=== PATIENT | male | born 1970 | race Caucasian/White ===

== ENCOUNTER 2017-02-20 16:46 | Emergency (ER) | payer OTHER ==
[~2017-02-20 16:46] MED LIST: HYDR-2758 PO; IBUP-1227 PO; SULF1TAB24 PO
--- NOTE | 2017-02-20 17:14 | RAD ---
Three-view left knee radiographs 02/20/2017 Clinical history: Fall with injury to the left knee while ice skating. AP, lateral and oblique digital radiographs of the left knee were obtained. An acute comminuted fracture of the left patella is seen. The fracture fragments are slightly distracted superiorly and inferiorly. No additional fracture is seen. Mild degenerative changes are seen involving all 3 compartments of the left knee. There is a moderate-sized suprapatellar joint effusion. Impression: Acute comminuted fracture of the left patella.
--- NOTE | 2017-02-20 18:04 | PHYS DOC ---
Past History Past Medical History: No Pertinent History, Other Past Surgical History: Other Smoking: Cigarettes Alcohol Use: Occasionally Drug Use: None Adult General Chief Complaint Chief Complaint: KNEE INJURY [facility] HPI 46-year-old male patient state he lost his balance while playing ice skating and landed on his left knee with severe pain in knee and states he thinks he has knee cap fracture. Patient denies other injuries and loss of consciousness and focal neurodeficit. Patient rated his pain mild while he's not walking and doesn't want to have pain medication. Review of Systems Review of Systems Constitutional: Denies fever or chills [] Eyes: Denies change in visual acuity, redness, or eye pain [] HENT: Denies nasal congestion or sore throat [] Respiratory: Denies cough or shortness of breath [] Cardiovascular: No additional information not addressed in HPI [] GI: Denies abdominal pain, nausea, vomiting, bloody stools or diarrhea [] : Denies dysuria or hematuria [] Musculoskeletal: Denies back pain, reports joint pain [] Integument: Denies rash or skin lesions [] Neurologic: Denies headache, focal weakness or sensory changes [] Endocrine: Denies polyuria or polydipsia [] All other systems were reviewed and found to be within normal limits, except as documented in this note. Allergies Allergies Allergies Coded Allergies Type Severity Reaction Last Updated Verified No Known Drug Allergies 08/07/13 No Physical Exam Physical Exam Constitutional: Well developed, well nourished, no acute distress, non-toxic appearance. [] HENT: Normocephalic, atraumatic, bilateral external ears normal, oropharynx moist, no oral exudates, nose normal. [] Eyes: PERRLA, EOMI, conjunctiva normal, no discharge. [] Neck: Normal range of motion, no tenderness, supple, no stridor. [] Cardiovascular:Heart rate regular rhythm, no murmur [] Lungs & Thorax: Bilateral breath sounds clear to auscultation [] Abdomen: Bowel sounds normal, soft, no tenderness, no masses, no pulsatile masses. [] Skin: Warm, dry, no erythema, no rash. [] Back: No tenderness, no CVA tenderness. [] Extremities: Left knee with holding in mild flexion and tenderness] without deformity, limited range of motion because of pain Neurologic: Alert and oriented X 3, normal motor function, normal sensory function, no focal deficits noted. [] Psychologic: Affect normal, judgement normal, mood normal. [] EKG EKG [] Radiology/Procedures Radiology/Procedures Left knee x ray showed comminuted fracture of patella] Course & Med Decision Making Course & Med Decision Making Pertinent Imaging studies reviewed. (See chart for details) Plan to apply knee mobilizer by [employer] right crutches and follow with orthopedic on-call. Patient did not want to have pain medication while he was in ER. bingo caller orthopedic physician Dr. Butler was informed at 1802 and agreed with plan of care and plan to see patient in the next and plans to see patient next week. [] Dragon Disclaimer Dragon Disclaimer This electronic medical record was generated, in whole or in part, using a voice recognition dictation system. Departure Departure: Impression: Primary Impression: Closed fracture of left patella Additional Impression: Fall Disposition: 01 HOME, SELF-CARE (At 1800) Condition: IMPROVED Referrals: AVI DELGADO DO (PCP) Patient Instructions: Patellar Fracture, Adult Additional Instructions: Call Dr. Melton personal security specialist orthopedic physician at [phone] Use crutches Scripts Hydrocodone Bit/Acetaminophen (NORCO 5-325 TABLET) 1 Each Tablet 1-2 TAB PO Q4-6HRS, #30 TAB Prov: SHANEKA PONCE MD 02/20/17 Ibuprofen (IBUPROFEN) 800 Mg Tablet 1 TAB PO TID, #30 TAB Prov: SHANEKA PONCE MD 02/20/17 Problem Qualifiers SHANEKA PONCE MD Feb 20, 2017 18:04
[2017-02-20] MEDS ORDERED: HYDR-971 PO (18:09)
[2017-02-20] MEDS ORDERED: IBUP800T19 PO (18:09)
[2017-02-20] MEDS ORDERED: HYDROcodone/APAP 5/325MG 1 TAB TABLET PO ONE (18:30)
[2017-02-20 18:50] VITALS: BP 109/52
== END 2017-02-20 18:55 | disposition home or self-care (01) ==
LOC: ER 16:46
DX: S82.042A Displaced comminuted fracture of left patella, initial encounter for closed fracture (principal); F17.210 Nicotine dependence, cigarettes, uncomplicated; W00.0XXA Fall on same level due to ice and snow, initial encounter; Y93.21 Activity, ice skating; Y99.8 Other external cause status; Y92.89 Other specified places as the place of occurrence of the external cause
CPT/HCPCS: 29505; 73562; 99284-25